=== PATIENT | male | born 1960 ===

== ENCOUNTER 2024-08-18 06:37 | Day surgery (SDC) | payer OTHER ==
[2024-08-18] MEDS ORDERED: MIDAZOLAM HCL 2 MG/2 ML VIAL IV ONE (10:15)
[2024-08-18] MEDS ORDERED: fentaNYL CITRATE 50 MCG/ML AMPUL IV PUSH ONE (10:15)
[2024-08-18] MEDS ORDERED: DIPHENHYDRAMINE HCL 50 MG/ML VIAL 1ML IV ONE (10:15)
== END 2024-08-18 11:20 | disposition home or self-care (01) ==
LOC: AMB-ENDOS 06:37
PROVIDERS: ATTEND Colon & Rectal Surgery
DX: K62.1 Rectal polyp (principal); K57.30 Diverticulosis of large intestine without perforation or abscess without bleeding; Z88.1 Allergy status to other antibiotic agents; Z88.0 Allergy status to penicillin